=== PATIENT | female | born 1970 | race Caucasian/White ===

== ENCOUNTER 2019-10-06 12:55 | Outpatient (CLI) | payer BC, SELFPAY ==
--- NOTE | 2019-10-06 | XR_ITS ---
WS: [id number] LUMBAR SPINE: 5 VIEWS TECHNIQUE: AP, lateral and L5-S1 spot. Lateral in neutral, flexion and extension. HISTORY: SCIATICA RIGHT SIDE COMPARISON: None available. Mild LEFT convex curvature the lumbar spine. Prior anterior lumbar fusion at L5-S1 with interbody spa cer. No lucency around the hardware. Asymmetric disc space narrowing at L3-4 and L4-5. No instability with flexion and extension. No change in position of the hardware. Pedicles are all identified. SI joints are symmetric bilaterally. No soft tissue abnormalities. XR/XR lumbar spine min 4V [id number] IMPRESSION: 1. Prior anterior lumbar fusion at L5-S1 with no evidence for loosening. 2. Mild asymmetric disc space narrowing at L3-4 and L4-5. 3. No lumbar spine instability.
== END 2019-10-06 12:56 | disposition home or self-care (01) ==
LOC: RADOUTREAD 14:04
PROVIDERS: Family Provider Family Medicine; PCP Family Medicine; Visit Provider Family Medicine
DX: Z76.89 Persons encountering health services in other specified circumstances (principal)

== ENCOUNTER 2020-04-25 14:03 | Emergency (ER) | payer BC, SELFPAY ==
[2020-04-25 14:16] VITALS: BP 151/89; PULSE 80; RESP 17; TEMP 36.6; O2SAT 96; BMI 40.6
--- NOTE | 2020-04-25 14:34 | CTR_ITS ---
PROCEDURE INFORMATION: Exam: CT Head Without Contrast Exam date and time: 04/25/2020 4:05 PM Age: 49 years old Clinical indication: Pain; Headache not specified; Patient HX: C/O L posterior QUINTERO and vertigo x 4 days; Additional info: Change in QUINTERO pattern TECHNIQUE: Imaging protocol: Computed tomography of the head without contrast. Radiation optimization: All CT scans at this facility use at least one of these dose optimization techniques: automated exposure control; mA and/or kV adjustment per patient size (includes targeted exams where dose is matched to clinical indication); or iterative reconstruction. COMPARISON: CT head wo con* [id number] 12/18/2018 2:01 PM RADIATION DOSE METRICS: Total DLP (mGy-cm): 782.83 FINDINGS: Brain: Normal. No hemorrhage. Unremarkable white matter. No mass effect. Ventricles: Normal. No ventriculomegaly. Bones/joints: Unremarkable. No acute fracture. Sinuses: Visualized sinuses are unremarkable. No fluid levels. Mastoid air cells: Visualized mastoid air cells are well aerated. Soft tissues: Unremarkable. CT/CT head wo con* [id number] IMPRESSION: No acute intracranial abnormality. Radiation Dose CTDIVOL = (mGy): DLP = 782.83 (mGy-cm)
[2020-04-25 15:40] LABS: Amphetamines Screen Urine Negative (Negative); Barbiturates Screen Urine Negative (Negative); Benzodiazepines Screen Urine Negative (Negative); Cocaine Screen Urine Negative (Negative); Opiate Screen Urine Negative (Negative); PCP Screen Urine Negative (Negative); THC Screen Urine Negative (Negative)
[2020-04-25 15:57] VITALS: BP 152/93; PULSE 87; RESP 14; O2SAT 96
[2020-04-25 16:01] LABS: Basophils % 0.7 %; Eosinophils # 0.3 10^3/uL (0.0-0.8); Eosinophils % 5.6 %; Hematocrit 45.9 % (37.0-47.0); Hemoglobin 14.3 g/dL (11.5-15.3); Lymphocytes # 2.3 10^3/uL (0.8-4.8); Lymphocytes % 39.4 %; Mean Corpuscular HGB Conc 31.2 g/dL (30.0-36.0); Mean Corpuscular Hemoglobin 31.9 pg (28.0-34.0); Mean Corpuscular Volume 102.5 fL (81-99); Monocytes # 0.6 10^3/uL (0.2-0.9); Monocytes % 10.7 %; Neutrophils # 2.46 10^3/uL (1.8-7.7); Neutrophils % 43.1 %; Nucleated Red Blood Cells % 0 %; Platelet Count 249 10^3/cmm (130-400); Red Blood Count 4.48 10^6/uL (4.1-5.3); Red Cell Distribution Width 12.3 % (12.1-15.1); White Blood Count 5.7 10^3/uL (4.0-10.0)
--- NOTE | 2020-04-25 16:01 | ED_ITS ---
HPI - Headache General: Chief Complaint: Headache Stated Complaint: persistent headache, 4 days Time Seen by Provider: 04/25/20 15:49 Source: patient Mode of arrival: ambulatory Limitations: no limitations History of Present Illness: HPI Narrative: Ms. Mckeon is a very nice 49-year-old female who comes in complaining of a headache. She states she has a very pinpoint headache the left occipital region. It started on Sunday and has been constant since then. The pain waxes and wanes in intensity occasionally will radiate down to her her left mastoid area. She denies any visual changes, nausea vomiting, photophobia, neck pain or stiffness or fever. Patient says she is had similar headaches to this in the past that have been worse but is different about this headache as she cannot get it to resolve. She tried [id number]-[id number] medicines at home for this but nothing seems to make it go away. Scribes the pain as moderate presently. She has no neurovascular deficits such as weakness in her arms or legs. No problems with her speech. She denies any other complaints. Associated symptoms: Deny chest pain, confusion, diaphoresis, fever(s), lightheadedness, malaise, nausea, pre-syncope, rash, syncope or vomiting Review of Systems Const: Denies: fever(s), chills, body aches, fatigue, malaise or diaphoresis Eyes: Denies: change in vision, blurry vision, photophobia, eye discomfort, eye discharge or eye redness ENMT: Denies: throat pain, odynophagia, hoarseness, swelling of lips/tongue, ear or mastoid pain, ear discharge, change in hearing or nasal discharge Card: Denies: chest pain, palpitations, irregular heart rhythm, edema, light headedness, syncope, pre-syncope, dyspnea on exertion or orthopnea Resp: Denies: dyspnea, productive cough, non-productive cough, wheezing, hemop tysis or chest congestion GI: Denies: abdominal pain, nausea, vomiting, hematemesis, coffee ground emesis, heartburn, diarrhea, constipation, GI cramping, hematochezia or melena : Denies: flank pain, dysuria, urinary frequency, urinary urgency or hematuria Musc: Denies: neck pain, back pain, extremity pain, extremity swelling, joint pain, joint swelling, joint redness, joint warmth or joint stiffness Skin/Breast: Denies: rash, pruritus, erythema or skin tenderness Neuro: Denies: numbness in extremities, weakness in extremities, sensory changes, lack of coordination, difficulty walking, dizziness, vertigo, confusion, Slurred speech present or seizure-like activity Lobo/Lymph: Denies: easy bruising, easy bleeding, petechiae, purpura or enlarged lymph nodes All/Imm: Denies: urticaria, throat swelling, tongue swelling, facial swelling or acute wheezing PFSH ED PFSH: Medical History Pelvic mass Physical Exam Const: COMMON NORMALS: no acute distress, patient oriented x3, no limitations, healthy appearing and well nourished GENERAL APPEARANCE: cooperative, well kempt and well developed HENMT: COMMON NORMALS: normocephalic, atraumatic, external ears normal, EAC's normal and Normal external nose present HEAD & SCALP: normal to inspection, n ormocephalic and atraumatic FACE & SINUS: normal facial exam and face symmetric NOSE: Normal external nose present and Normal nares present EXTERNAL EAR: Yes external ears normal EXTERNAL AUDITORY CANAL: EAC's normal MOUTH: Normal oral and palatal mucosa present, lip normal and tongue normal Eye: COMMON NORMALS: Equal, round and reactive pupils present and conjunctivae normal GENERAL EYE: appearance normal, both eyes and all related structures ALIGNMENT: Yes alignment normal PERIORBITAL: periorbital findings normal EYELID: eyelids normal CONJUNCTIVA: Yes conjunctivae normal SCLERA: sclerae normal PUPIL: Yes Equal, round and reactive pupils present Neck/C-Spine: COMMON NORMALS: full ROM, no lymphadenopathy, supple, no meningeal signs and no JVD GENERAL: Yes normal visual inspection and Yes trachea midline Chest: COMMONS NORMALS: normal inspection of the chest and normal palpation of entire chest wall Resp: COMMON NORMALS: normal respiratory effort, No retractions, No use of accessory muscles and clear to auscultation bilaterally EFFORT & INSPECTION: Yes able to speak in complete sentences and Yes symmetric chest movement AUSCULTATION: clear to auscultation bilaterally, no crackles, no rales, no rhonchi and no wheezes Cardio: COMMON NORMALS: no JVD, regular rate, regular rhythm, S1 normal heart sound present and S2 normal heart sound present RATE: regular rate RHYTHM: regular rhythm HEART SOUNDS: S1 normal heart sound present, S2 normal heart sound present, no click, no gallops, no murmurs, no rubs and abnormal split S2 GI: COMMON NORMALS: Soft to palpation and No hepatosplenomegaly present PALPATION: Yes Soft to palpation, No Tenderness to palpation present (GI), No Guarding due to palpation present (GI), No Rigid due to palpation, Yes No hepatosplenomegaly present, No Hernia present, No Palpable mass present and No Pulsatile mass present : COMMON NORMALS: Yes no CVA tenderness BLADDER/KIDNEY EXAM: Yes no CVA tenderness EXTERNAL FEMALE EXAM: No Hernia present Back/Pelvis: COMMON NORMALS: no CVA tenderness, thoracic and lumbar spine normal to inspection, no thoracic nor lumbar tenderness and thoraco-lumbar ROM normal Extremity: COMMON NORMALS: normal to inspection, full ROM, capillary refill normal, no joint enlargement, no clubbing, cyanosis or edema and no calf tenderness Neuro: COMMON NORMALS: patient oriented x3, CN's II-XII intact bilaterally, moves all extremities, no focal motor deficits and no sensory deficits noted MENINGEAL SIGNS: Yes no meningeal signs SPEECH: speech normal Psych: COMMON NORMALS: mental status grossly normal, Normal thought process present, cooperative, normal affect, speech normal and activity/motor behavior normal APPEARANCE: Yes well kempt SPEECH: Yes normal speech THOUGHT PROCESS: Normal thought process present Skin: COMMON NORMALS: no rashes or lesions noted, turgor normal, no jaundice, no petechiae and no mottling GENERAL SKIN EXAM: no rashes or lesions noted and turgor normal Course Vital Signs: Vital signs: Vital Signs Temperature 97.8 F 04/25/20 14:16 Pulse Rate 74 04/25/20 17:16 Respiratory Rate 14 04/25/20 17:16 Blood Pressure 137/100 04/25/20 17:16 Pulse Oximetry 96 04/25/20 17:16 MDM - Headache MDM Narrative: Medical decision making narrative: 1718 -patient's pain is better her headache is almost gone. Clinically this appears more like occipital neuralgia. Patient ends tenderness still with mild palpation. She agrees to try the medications I am going to give her, [place] and she will follow-up with Dr. Cervantes for recheck. She understands return if her symptoms worsen. This time I see no sign of acute infection to her skull or scalp. There is no sign of subarachnoid hemorrhage, meningitis or other acute life-threatening problem. Lab Data: Attestation: I reviewed the patient's lab results. Labs: Lab Results 04/25/20 04/25/20 04/25/20 Range/Units 14:30 15:53 15:53 WBC 5.7 (4.0-10.0) 10^3/ uL RBC 4.48 (4.1-5.3) 10^6/u L Hgb 14.3 (11.5-15.3) g/dL Hct 45.9 (37.0-47.0) % MCV 102.5 H (81-99) fL MCH 31.9 (28.0-34.0) pg MCHC 31.2 (30.0-36.0) g/dL RDW 12.3 (12.1-15.1) % Plt Count 249 (130-400) 10^3/c mm MPV 11.0 H (7.4-10.4) fL Neut % (Auto) 43.1 % Lymph % (Auto) 39.4 % [place] % (Auto) 10.7 % Eos % (Auto) 5.6 % Baso % (Auto) 0.7 % Neut # (Auto) 2.46 (1.8-7.7) 10^3/u L Lymph # (Auto) 2.3 (0.8-4.8) 10^3/u L [place] # (Auto) 0.6 (0.2-0.9) 10^3/u L Eos # (Auto) 0.3 (0.0-0.8) 10^3/u L Baso # (Auto) 0.0 (0.0-0.1) 10^3/u L Nucleated RBC % (a uto) 0 % Nucleated RBCs # 0.0 /100WBC Sodium 138 (136-145) mmol/L Potassium 4.2 (3.5-5.1) mmol/L Chloride 103 (98-107) mmol/L Carbon Dioxide 26 (22-29) mmol/L Anion Gap 13.2 (5-19) BUN 11 (6-20) mg/dL Creatinine 0.7 (0.5-0.9) mg/dL GFR Calculation 88.6 L (90-130) mL/min Glucose 101 (65-115) mg/dL Calculated Osmolal ity 282 L (285-295) mOsm/k g Calcium 9.4 (8.5-10.5) mg/dL Total Bilirubin 0.3 (0.15-1.2) mg/dL AST 37 H (0-32) U/L ALT 64 H (0-33) U/L Alkaline Phosphata se 79 (35-105) IU/L Total Protein 7.8 (6.6-8.7) g/dL Albumin 4.3 (3.5-5.2) g/dL Globulin 3.5 (1.3-4.6) g/dL HCG, Qual (Negative) Urine Opiates Scre en Negative (Negative) ng/mL Ur Barbiturates Sc reen Negative (Negative) ng/mL Ur Phencyclidine S crn Negative (Negative) ng/mL Ur Amphetamines Sc reen Negative (Negative) ng/mL U Benzodiazepines Scrn Negative (Negative) ng/mL Urine Cocaine Scre en Negative (Negative) ng/mL U Marijuana (THC) Screen Negative (Negative) ng/mL 04/25/20 Range/Units 15:53 WBC (4.0-10.0) 10^3/ uL RBC (4.1-5.3) 10^6/u L Hgb (11.5-15.3) g/dL Hct (37.0-47.0) % MCV (81-99) fL MCH (28.0-34.0) pg MCHC (30.0-36.0) g/dL RDW (12.1-15.1) % Plt Count (130-400) 10^3/c mm MPV (7.4-10.4) fL Neut % (Auto) % Lymph % (Auto) % [place] % (Auto) % Eos % (Auto) % Baso % (Auto) % Neut # (Auto) (1.8-7.7) 10^3/u L Lymph # (Auto) (0.8-4.8) 10^3/u L [place] # (Auto) (0.2-0.9) 10^3/u L Eos # (Auto) (0.0-0.8) 10^3/u L Baso # (Auto) (0.0-0.1) 10^3/u L Nucleated RBC % (a uto) % Nucleated RBCs # /100WBC Sodium (136-145) mmol/L Potassium (3.5-5.1) mmol/L Chloride (98-107) mmol/L Carbon Dioxide (22-29) mmol/L Anion Gap (5-19) BUN (6-20) mg/dL Creatinine (0.5-0.9) mg/dL GFR Calculation (90-130) mL/min Glucose (65-115) mg/dL Calculated Osmolal ity (285-295) mOsm/k g Calcium (8.5-10.5) mg/dL Total Bilirubin (0.15-1.2) mg/dL AST (0-32) U/L ALT (0-33) U/L Alkaline Phosphata se (35-105) IU/L Total Protein (6.6-8.7) g/dL Albumin (3.5-5.2) g/dL Globulin (1.3-4.6) g/dL HCG, Qual Negative (Negative) Urine Opiates Scre en (Negative) ng/mL Ur Barbiturates Sc reen (Negative) ng/mL Ur Phencyclidine S crn (Negative) ng/mL Ur Amphetamines Sc reen (Negative) ng/mL U Benzodiazepines Scrn (Negative) ng/mL Urine Cocaine Scre en (Negative) ng/mL U Marijuana (THC) Screen (Negative) ng/mL Imaging Data^: CT Head: Radiologist's impression: [place] [address] CT Scan Report Signed Patient: Winter Mckeon Unit #: [id number] : 1970 A cct#:[id number] Age/Sex: 49 / F ADM Date: 04/25/20 Loc: ER Room/Bed: Attending Dr: Ordering Provider/Ordering MD: Veronica Dong Date of Service: 04/25/20 Procedure(s): CT head wo con* [id number] Accession Number(s): [id number] Report Number: [id number] PROCEDURE INFORMATION: Exam: CT Head Without Contrast Exam date and time: 04/25/2020 4:05 PM Age: 49 years old Clinical indication: Pain; Headache not specified; Patient HX: C/O L posterior QUINTERO and vertigo x 4 days; Additional info: Change in QUINTERO pattern TECHNIQUE: Imaging protocol: Computed tomography of the head without contrast. Radiation optimization: All CT scans at this facility use at least one of these dose optimization techniques: automated exposure control; mA and/or kV adjustment per patient size (includes targeted exams where dose is matched to clinical indication); or iterative reconstruction. COMPARISON: CT head wo con* [id number] 12/18/2018 2:01 PM RADIATION DOSE METRICS: Total DLP (mGy-cm): 782.83 FINDINGS: Brain: Normal. No hemorrhage. Unremarkable white matter. No mass effect. Ventricles: Normal. No ventriculomegaly. Bones/joints: Unremarkable. No acute fracture. Sinuses: Visualized sinuses are unremarkable. No fluid levels. Mastoid air cells: Visualized mastoid air cells are well aerated. Soft tissues: Unremarkable. CT/CT head wo con* [id number] IMPRESSION: No acute intracranial abnormality. Radiation Dose CTDIVOL = (mGy): DLP = 782.83 (mGy-cm) Dictated By: Marcus Mccormick MD Signed By: Marcus Mccormick MD Signed Date/Time: 04/25/201654 DD/ 52 Discharge Plan Discharge Patient Disposition: Home Clinical Impression: Occipital neuralgia Qualifiers: Laterality: left Qualified Code(s): M54.81 - Occipital neuralgia Condition: Stable Prescriptions: New [place] 5-325 mg tablet 1 tab PO Q6H PRN (Reason: pain) 5 Days Qty: 20 RF: 0 No Action furosemide 40 mg tablet 20 mg PO EVERY OTHER DAY PRN (Reason: Edema) RF: 0 potassium chloride 10 mEq capsule, extended release 10 meq PO DAILY RF: 0 Aspir-81 81 mg Tablet,Delayed Release (Dr/Ec) 81 mg PO DAILY RF: 0 montelukast 10 mg tablet 10 mg PO DAILY RF: 0 Ventolin HFA 90 mcg/actuation HFA aerosol inhaler 1 - 2 puff INHALATION Q4H PRN (Reason: Shortness Of Breath) RF: 0 pregabalin 150 mg capsule 300 mg PO BID RF: 0 melatonin 10 mg Tablet 10 mg PO BEDTIME RF: 0 Nyquil See Rx Instructions .ROUTE .COMPLEX RF: 0 Discharge Orders: Discharge Order (Routine); Ordered 04/25/20 Ordered By: Sonal Lee Referrals: Boni Cervantes MD [Primary Care Provider] - 1-3 days Discharge Diet: Advance as tolerated Discharge Activity: Increase activity as tolerated Patient Instructions: Acute Headache (ED) Activity Restrictions/Additional Instructions: Please return to the ER immediately for any of the signs or symptoms listed on your discharge instruction sheets, worsening/changing of your symptoms, you are not getting better as quickly as expected, or for ANY other cause or concerns. If your pain worsens or symptoms change at all please return to the ER immediately for recheck. 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
[2020-04-25 16:13] LABS: HCG, Serum Qual Negative (Negative)
[2020-04-25 16:18] LABS: Alanine Aminotransferase 64 U/L (0-33); Albumin Level 4.3 g/dL (3.5-5.2); Alkaline Phosphatase 79 IU/L (35-105); Anion Gap 13.2 (5-19); Aspartate Amino Transferase 37 U/L (0-32); Blood Urea Nitrogen 11 mg/dL (6-20); Calcium 9.4 mg/dL (8.5-10.5); Carbon Dioxide 26 mmol/L (22-29); Chloride 103 mmol/L (98-107); Globulin 3.5 g/dL (1.3-4.6); Glomerular Filtration Rate 88.6 mL/min (90-130); Glucose 101 mg/dL (65-115); Osmolality Calculated 282 mOsm/kg (285-295); Potassium 4.2 mmol/L (3.5-5.1); Sodium 138 mmol/L (136-145); Total Bilirubin 0.3 mg/dL (0.15-1.2); Total Protein 7.8 g/dL (6.6-8.7)
[2020-04-25] MEDS: metoclopramide 5 mg/mL SDV 2 mL 10 MG IV (16:29)
[2020-04-25] MEDS: sodium chloride 0.9% 1,000 ML 999 ML IV (16:29)
[2020-04-25] MEDS: diphenhydrAMINE 50 mg/mL SDV 1mL 25 MG IVP (16:29)
[2020-04-25 16:39] VITALS: BP 136/84; PULSE 84; RESP 14; O2SAT 97
[2020-04-25 17:16] VITALS: BP 137/100; PULSE 74; RESP 14; O2SAT 96
[2020-04-25 17:47] VITALS: BP 131/84; PULSE 71; RESP 14; O2SAT 97
== END 2020-04-25 17:47 | disposition home or self-care (01) ==
PROVIDERS: Nurse Practitioner Family; Emergency Provider Emergency Medicine; PCP Family Medicine
DX: M54.81 Occipital neuralgia (principal); Z79.82 Long term (current) use of aspirin
CPT/HCPCS: 12345; 36415; 70450; 80053; 80306; 84703; 85025; 96361; 96374; 96375; 99283; J0131; J1200; J2765; J7030

== ENCOUNTER 2021-12-13 07:32 | Outpatient (CLI) | payer OTHER, SELFPAY ==
--- NOTE | 2021-12-13 07:53 | MM_ITS ---
WS: [id number] BILATERAL SCREENING 3D TOMOSYNTHESIS DIGITAL MAMMOGRAM WITH CAD HISTORY: SCREENING COMPARISON: 10/15/2017 and 10/12/2016 Bilateral CC and MLO views submitted. Computer aided detection analyzed. Breast composition: There are scattered areas of fibroglandular density. No suspicious masses, microc alcifications or architectural distortion. 10 mm ovoid mass upper-outer quadrant LEFT breast is stabl e. MM/[place] [id number] IMPRESSION: BI-RADS: 2-Benign FOLLOW UP: 1 Year Follow-up
== END 2021-12-13 07:33 | disposition home or self-care (01) ==
LOC: RADSHAW 07:34
PROVIDERS: PCP Family Medicine; Visit Provider Family Medicine
DX: Z12.31 Encounter for screening mammogram for malignant neoplasm of breast (principal)
CPT/HCPCS: 77063; 77067